=== PATIENT | male | born 1980 | race Caucasian/White ===

== ENCOUNTER 2021-06-15 19:47 | Emergency (ER) | payer OTHER ==
[~2021-06-15] VITALS: Ht 188 cm; Wt 136.1 kg
[~2021-06-15 19:47] MED LIST: AMOXICILLIN875 MG PO; CEFPODOXIME PR200 M1 PO; NOHOMEMEDICATIONS
[2021-06-15 20:54] LABS: EOSINOPHILS 1.2 % (0.0-3.0); HEMATOCRIT 39.5 % (42.0-52.0); HEMOGLOBIN 13.9 gm/dL (14.0-18.0); LYMPHOCYTES 17.1 % (24.0-44.0); MCH 31.2 pg (26.0-34.0); MCHC 35.2 g/dL (28.0-37.0); MCV 88.7 fL (80.0-100.0); MONOCYTES 9.1 % (1.0-8.0); PLATELET COUNT 201 thou/uL (150-400); POLYS 71.6 % (36.0-66.0); RBC 4.45 mil/uL (4.50-6.00); RDW 12.5 % (10.5-14.5)
[2021-06-15 21:06] LABS: CALCIUM 8.6 mg/dL (8.5-10.1); CREATININE 0.8 mg/dL (0.7-1.3)
[2021-06-15 21:11] LABS: ALBUMIN 2.6 g/dL (3.4-5.0); TOTAL BILIRUBIN 0.3 mg/dL (0.2-1.0); TOTAL PROTEIN 6.9 g/dL (6.4-8.2)
[2021-06-16 01:36] VITALS: BP 151/95
== END 2021-06-16 01:38 | disposition left against medical advice (07) ==
LOC: ER 19:47
PROVIDERS: Nurse Practitioner
DX: A41.9 Sepsis, unspecified organism (principal); L02.411 Cutaneous abscess of right axilla; Z90.49 Acquired absence of other specified parts of digestive tract